=== PATIENT | male | born 1930 | race Caucasian/White ===

== ENCOUNTER 2017-04-29 14:40 | Emergency (ER) | payer OTHER ==
[2017-04-29 14:57] VITALS: TEMP 97.9; BMI 21.9
[2017-04-29 15:24] LABS: RDW 12.6 % (11.9-15.9)
[2017-04-29 15:27] LABS: BASO % 2.2 % (0-2.0); HEMATOCRIT 45.3 % (35.4-49); LYMPH % 10.7 % (8-40); MCHC 33.2 g/dl (32.0-35.9); MEAN CELL VOLUME 90.4 fl (80-96); MEAN PLT VOLUME 8.9 fl (7.5-11.1); MONO % 5.6 % (3.8-10.2); NEUT % 80.5 % (42.8-82.8); PLATELET COUNT 313 K/MM3 (134-434); RBC 5.01 M/mm3 (4.00-5.60); WHITE BLOOD COUNT 11.7 K/mm3 (4.0-10.8)
[2017-04-29 15:37] LABS: ACTIVATED PTT 25.1 SECONDS (24.0-38.9)
--- NOTE | 2017-04-29 15:38 | PDOC ---
History of Present Illness - General Chief Complaint: Chest Pain Stated Complaint: CHEST PAIN FOR 4-5 DAYS Time Seen by Provider: 04/29/17 14:48 - History of Present Illness Initial Comments: 04/29/17 15:47 "The patient is a 87-year-old male, with no significant past medical history, who presents to the ED with chest pain for the past 5 days. He describes the pain as constant, pressure-like in sensation, exacerbated with exertion and going out in cold weather, with no alleviating factors. Pt also reports feeling short of breath when ambulating. He denies F/C. Denies cough. Denies leg swelling. Denies orthopnea. Denies recent immobilization/travel. The patient has never had a stress test. Housing Counselor: Dr. Fuad Prather Hx: Former smoker (quit 50 years ago) " Past History - Past Medical History Allergies/Adverse Reactions: Allergies Allergy/AdvReac Type Severity Reaction Status Date / Time No Known Allergies Allergy Verified 04/30/17 07:57 Home Medications: Ambulatory Orders Cholecalciferol (Vitamin D3) [Vitamin D3] 1,000 unit PO DAILY tablet 07/07/14 [facility] 1 tab PO DAILY 07/07/14 Acetaminophen [Tylenol Extra Strength] 500 mg PO PRN PRN tablet 09/16/15 Vitamin B Complex [B Complex] 1 each PO DAILY 04/29/17 Ropinirole HCl [Requip] 1 mg PO BID 04/30/17 COPD: No Other medical history: RESTLESS LEG SYNDRONE - Suicide/Smoking/Psychosocial Hx Smoking History: Never smoked Hx Alcohol Use: Yes (OCCASIONAL GLASS OF WINE) Drug/Substance Use Hx: No Substance Use Type: None Review of Systems - Review of Systems Comments:: 04/29/17 15:49 "GENERAL/CONSTITUTIONAL: No fever or chills. No weakness. HEAD, EYES, EARS, NOSE AND THROAT: No change in vision. No ear pain or discharge. No sore throat. CARDIOVASCULAR: (+)chest pain, shortness of breath. RESPIRATORY: No cough, wheezing, or hemoptysis. GASTROINTESTINAL: No nausea, vomiting, diarrhea or constipation. GENITOURINARY: No dysuria, frequency, or change in urination. MUSCULOSKELETAL: No joint or muscle swelling or pain. No neck or back pain. SKIN: No rash NEUROLOGIC: No headache, vertigo, loss of consciousness, or change in strength/ sensation. ENDOCRINE: No increased thirst. No abnormal weight change. HEMATOLOGIC/LYMPHATIC: No anemia, easy bleeding, or history of blood clots. ALLERGIC/IMMUNOLOGIC: No hives or skin allergy. " *Physical Exam - Vital Signs Last Vital Signs Temp Pulse Resp BP Pulse Ox 97.9 F 84 16 134/88 99 04/29/17 14:47 04/29/17 18:30 04/29/17 18:30 04/29/17 18:30 04/29/17 18:30 - Physical Exam Comments: 04/29/17 15:49 "GENERAL: Awake, alert, and fully oriented, in no acute distress HEAD: No signs of trauma EYES: PERRLA, EOMI, sclera anicteric, conjunctiva clear ENT: Auricles normal inspection, hearing grossly normal, nares patent, oropharynx clear without exudates. Moist mucosa NECK: Nontender, no stepoffs, Normal ROM, supple, no lymphadenopathy, JVD, or masses LUNGS: Breath sounds equal, clear to auscultation bilaterally. No wheezes, and no crackles HEART: Regular rate and rhythm, normal S1 and S2, no murmurs, rubs or gallops ABDOMEN: Soft, nontender, normoactive bowel sounds. No guarding, no rebound. No masses EXTREMITIES: Normal range of motion, no edema. No clubbing or cyanosis. No cords, erythema, or tenderness NEUROLOGICAL: Cranial nerves II through XII intact. 5/5 strength and sensation in all extremities, Normal speech, normal gait SKIN: Warm, Dry, normal turgor, no rashes or lesions noted. " Heart Score/ECG Review - History History: Slightly suspicious - Electrocardiogram EKG: Normal - Age Age: >/= 65 - Risk Factors Based on the list above the patient has:: No risk factors known - ECG Impressions Comment:: 04/29/17 15:49 NSR, no KIRSTEN/STDs, no TWIs, axis wnl, intervals wnl, rate 88 ED Treatment Course - LABORATORY CBC & Chemistry Diagram: 04/29/17 15:10 04/29/17 15:10 - ADDITIONAL ORDERS Additional order review: 04/29/17 15:10 RBC 5.01 MCV 90.4 MCHC 33.2 RDW 12.6 MPV 8.9 Neutrophils % 80.5 Lymphocytes % 10.7 D Monocytes % 5.6 Eosinophils % 1.0 Basophils % 2.2 H D - RADIOLOGY Radiology Studies Ordered: Category Date Time Status CHEST PA & LAT [RAD] Stat Radiology 04/29/17 15:04 Completed - Medications Given in the ED: ED Medications Discontinued Medications Generic Name Dose Route Start Last Admin Trade Name Jabariq PRN Reason Stop Dose Admin Aspirin 325 mg 04/29/17 18:52 04/29/17 19:05 Asa - PO 04/29/17 18:53 325 mg ONCE ONE Administration Azithromycin 500 mg/ Dextrose 250 mls @ 250 mls/hr 04/29/17 15:51 04/29/17 16 :30 IVPB 04/29/17 16:50 250 mls/hr ONCE ONE Administration Ceftriaxone Sodium 1 gm/ 50 mls @ 100 mls/hr 04/29/17 15:50 04/29/17 16:00 Dextrose IVPB 04/29/17 16:19 100 mls/hr ONCE ONE Administration Nitroglycerin 1 inch 04/29/17 18:52 04/29/17 19:05 Nitro-Bid 2% Paste - TD 04/29/17 18:53 1 inch ONCE ONE Administration Medical Decision Making - Critical Care Time Total Critical Care Time (minutes): 60 Critical Care Statement: The care of this patient involved high complexity decision making to prevent further life threatening deterioration of the patient 's condition and/or to evaluate & treat vital organ system(s) failure or risk of failure. - Medical Decision Making 04/29/17 15:49 87 M with CP and SOB. EKG is nonischemic (no ST elevations/depressions, no T wave inversions). However, pt does report exertional component of pain, concerning for ACS. Pt with no clinical s/s of DVT or PE. Possible PNA. - Labs, trop, BNP - CXR 04/29/17 18:46 CBC,CMP WBC 11.7 K/mm3 (4.0-10.8) H D 04/29/17 15:10 RBC 5.01 M/mm3 (4.00-5.60) 04/29/17 15:10 Hgb 15.0 GM/dl (11.7-16.9) 04/29/17 15:10 Hct 45.3 % (35.4-49) 04/29/17 15:10 MCV 90.4 fl (80-96) 04/29/17 15:10 MCH 30.0 pg (25.7-33.7) 04/29/17 15:10 MCHC 33.2 g/dl (32.0-35.9) 04/29/17 15:10 RDW 12.6 % (11.9-15.9) 04/29/17 15:10 Plt Count 313 K/MM3 (134-434) 04/29/17 15:10 MPV 8.9 fl (7.5-11.1) 04/29/17 15:10 Neutrophils % 80.5 % (42.8-82.8) 04/29/17 15:10 Lymphocytes % 10.7 % (8-40) D 04/29/17 15:10 Monocytes % 5.6 % (3.8-10.2) 04/29/17 15:10 Eosinophils % 1.0 % (0-4.5) 04/29/17 15:10 Basophils % 2.2 % (0-2.0) H D 04/29/17 15:10 Sodium 133 mmol/L (136-145) L 04/29/17 15:10 Potassium 4.0 mmol/L (3.5-5.1) 04/29/17 15:10 Chloride 101 mmol/L (98-107) 04/29/17 15:10 Carbon Dioxide 25 mmol/L (22-28) 04/29/17 15:10 Anion Gap 7 (8-16) L 04/29/17 15:10 BUN 20 mg/dl (7-18) H 04/29/17 15:10 Creatinine 0.8 mg/dl (0.6-1.3) 04/29/17 15:10 Creat Clearance w eGFR > 60 (>60) 04/29/17 15:10 Random Glucose 124 mg/dl (74-106) H D 04/29/17 15:10 Calcium 9.6 mg/dl (8.4-10.2) 04/29/17 15:10 Total Bilirubin 0.5 mg/dl (0.2-1.0) D 04/29/17 15:10 AST 64 U/L (10-42) H D 04/29/17 15:10 ALT 25 U/L (10-40) D 04/29/17 15:10 Alkaline Phosphatase 109 U/L (32-92) H D 04/29/17 15:10 Creatine Kinase 387 IU/L (39-308) H 04/29/17 15:10 Creatine Kinase Index 10.6 % (0.0-5.0) H* 04/29/17 15:10 CK-MB (CK-2) 41.285 ng/mL (0.5-3.6) H 04/29/17 15:10 Troponin I 2.96 ng/ml (0.00-0.05) H* 04/29/17 15:10 B-Natriuretic Peptide 2734.32 pg/ml (5-450) H 04/29/17 15:10 Total Protein 6.9 g/dl (6.4-8.3) 04/29/17 15:10 Albumin 3.7 g/dl (3.5-5.0) 04/29/17 15:10 Trop 2.96 I spoke with the patient and reviewed the lab results with him, informing him that he is likely suffering from an OH. Pt understands that this is a life- threatening condition, but he states that he absolutely will not stay in the hospital overnight. When asked why, he replies that he has been here for 4 hours already and wishes to go home, as he feels better and needs to " straighten some things out". Pt states that he will come back tomorrow after he is done. The patient is clinically sober, free from distracting injury, appears to have intact insight and judgment and reason and in my opinion has the capacity to make decisions. The patient presented with chest pain and was found to have an elevated troponin. I have explained that I am concerned that this may represent a heart attack; they have verbalized an understanding of my concerns. I have discussed the need for cardiology consultation, admission to the hospital, and possible transfer for cardiac catheterization. I have told the patient that if he refuses treatment, he may suffer irreversible heart damage. I have told the patient that if they leave, they could get much worse, could become critically ill, and could possibly become disabled or . I have offered to give the patient more pain medication. I have asked them to stay in the hospital for continued monitoring, repeat blood tests, cardiology consultation, and possible transfer for interventional cardiology. I have discussed these concerns with the patient's who is at the bedside and she is unable to convince them to stay for further evaluation. He is unwilling to stay overnight for monitoring, additional testing, or interventions. He is refusing any further care and is leaving against medical advice. I am unable to convince the patient to stay, I have asked them to return as soon as possible to complete their evaluation. I have offered to speak with Dr. Merida regarding his condition, but he states it will not change his decision. I have answered all their questions. *DC/Admit/Observation/Transfer Diagnosis at time of Disposition: NSTEMI (non-ST elevated myocardial infarction) - Discharge Dispostion Disposition: AGAINST MEDICAL ADVICE Condition at time of disposition: Critical - Referrals Referrals: Alberto Merida MD [Primary Care Provider] - - Patient Instructions Additional Instructions: You are suffering from a heart attack, which is a life-threatening condition. If you leave the hospital tonight, you are putting yourself in imminent danger. You will likely suffer irreversible heart damage without treatment, which can lead to severe illness or disability. You may also . You must return to the emergency room as soon as possible for treatment of your heart attack. - Post Discharge Activity - Attestations Physician Attestion: 04/29/17 19:09 I, Dr. Deni Roldan MD, attest that this document has been prepared under my direction and personally reviewed by me in its entirety. I further attest, that it accurately reflects all work, treatment, procedures and medical decision -making performed by me.
[2017-04-29 15:39] LABS: ALBUMIN 3.7 g/dl (3.5-5.0); ALK PHOS 109 U/L (32-92); ANION GAP 7 (8-16); BILIRUBIN,TOTAL 0.5 mg/dl (0.2-1.0); BLOOD UREA NITROGEN 20 mg/dl (7-18); CALCIUM 9.6 mg/dl (8.4-10.2); CHLORIDE 101 mmol/L (98-107); CO2 25 mmol/L (22-28); CREATININE 0.8 mg/dl (0.6-1.3); GLUCOSE,RANDOM 124 mg/dl (74-106); SGOT/AST 64 U/L (10-42); SGPT/ALT 25 U/L (10-40); SODIUM 133 mmol/L (136-145); TOT PROT 6.9 g/dl (6.4-8.3)
[2017-04-29 15:42] LABS: INR 1.05 (0.82-1.09); PROTHROMBIN TIME (PATIENT) 11.7 SEC (10.2-13.0)
[2017-04-29] MEDS ORDERED: CEFTRIAXONE 1 GM in DEXTROSE 5%-WATER - 50 ML IVPB ONE (15:50)
[2017-04-29] MEDS ORDERED: AZITHROMYCIN IVPB 500 MG in DEXTROSE 5%-WATER - 250 ML IVPB ONE (15:51)
[2017-04-29] MEDS ORDERED: AZITHROMYCIN 500 MG VIAL IVPB ONE (15:59)
[2017-04-29] MEDS ORDERED: cefTRIAXone SODIUM 1 GM VIAL ONE (15:59)
[2017-04-29 18:39] VITALS: BP 134/88; PULSE 84
[2017-04-29] MEDS ORDERED: ASPIRIN 325 MG TABLET PO ONE (18:52)
[2017-04-29] MEDS ORDERED: NITROGLYCERIN 2% OINTMENT - 1GM PACKET TD ONE ×2 (18:52→19:02)
[2017-04-29] MEDS ORDERED: ASPIRIN 325 MG TABLET ONE (19:01)
--- NOTE | 2017-05-01 15:57 | EKG ---
Test Reason : Blood Pressure : / mmHG Vent. Rate : 088 BPM Atrial Rate : 088 BPM P-R Int : 140 ms QRS Dur : 092 ms QT Int : 342 ms P-R-T Axes : 061 052 079 degrees QTc Int : 413 ms NORMAL SINUS RHYTHM CANNOT RULE OUT ANTEROSEPTAL INFARCT , AGE UNDETERMINED NO PREVIOUS ECGS AVAILABLE Confirmed by MD PEREZ MARJORY ([id number]) on 05/01/2017 3:56:41 PM Referred By: YARELI Confirmed By:WESTON PEREZ MD
== END 2017-04-29 19:12 | disposition left against medical advice (07) ==
LOC: FER 14:40
DX: I21.3 ST elevation (STEMI) myocardial infarction of unspecified site (principal)
CPT/HCPCS: 36415; 71046-TC; 80053; 82550; 82553; 83880; 84484; 85025; 85610; 85730; 93005; 99284-25

== ENCOUNTER → 2017-04-30 | Emergency (ER) | payer OTHER ==
[~2017-04-30] MED LIST: ASPIRIN 81 MG CHEWABLE TABLETS ONE; ASPIRIN 81 MG CHEWABLE TABLETS PO ONE; CLOPIDOGREL BISULFATE 300 MG TABLET ONE; CLOPIDOGREL BISULFATE 300 MG TABLET PO ONE; HEPARIN INFUSION - 25,000 UNITS/500 ML INFUS.BAG IVPB ONE; HEPARIN INFUSION - 25,000 UNITS/500 ML INFUS.BAG IVPB SCH; HEPARIN NA (PORCINE) 5,000 UNITS/ML 1ML VIAL IVPUSH PRN; HEPARIN NA (PORCINE) 5,000 UNITS/ML 1ML VIAL ONE
--- NOTE | 2017-04-30 07:50 | PDOC ---
History of Present Illness - General Chief Complaint: Pain Stated Complaint: CHEST PAIN Time Seen by Provider: 04/30/17 07:41 History Source: Patient Exam Limitations: No Limitations - History of Present Illness Initial Comments: 04/30/17 07:46 87 y/o male seen yesterday in ER fro chest pain, signed out AMA. Patient had a Troponin of 2.9 yesterday. Denies back pain or arm pain. No fever or chills or SOB. This pain has been on/off since Monday. Pain is about a level 3 now. Took a baby Aspirin this morning. No N/V/d/C. Severity: mild Past History - Past Medical History Allergies/Adverse Reactions: Allergies Allergy/AdvReac Type Severity Reaction Status Date / Time No Known Allergies Allergy Verified 04/30/17 07:57 Home Medications: Ambulatory Orders Cholecalciferol (Vitamin D3) [Vitamin D3] 1,000 unit PO DAILY tablet 07/07/14 [facility] 1 tab PO DAILY 07/07/14 Acetaminophen [Tylenol Extra Strength] 500 mg PO PRN PRN tablet 09/16/15 Vitamin B Complex [B Complex] 1 each PO DAILY 04/29/17 Ropinirole HCl [Requip] 1 mg PO BID 04/30/17 COPD: No - Suicide/Smoking/Psychosocial Hx Smoking History: Never smoked Hx Alcohol Use: Yes (OCCASIONAL GLASS OF WINE) Drug/Substance Use Hx: No Substance Use Type: None Review of Systems - Review of Systems Able to Perform ROS?: Yes Is the patient limited Omani proficient: No Constitutional: No: Chills, Fever HEENTM: No: Throat Pain Respiratory: No: Cough, Shortness of Breath Cardiac (ROS): Yes: Chest Pain. No: Edema, Palpitations, Syncope ABD/GI: No: Nausea, Vomiting Musculoskeletal: No: Back Pain Neurological: No: Dizziness All Other Systems: Reviewed and Negative *Physical Exam - Physical Exam General Appearance: Yes: Nourished, Appropriately Dressed. No: Apparent Distress HEENT: positive: EOMI, BRITTANY, Normal ENT Inspection, Normal Voice, Pharynx Normal Neck: positive: Trachea midline, Normal Thyroid, Supple. negative: Tender, Rigid, Carotid bruit Respiratory/Chest: positive: Lungs Clear, Normal Breath Sounds. negative: Chest Tender, Respiratory Distress Cardiovascular: positive: Regular Rhythm, Regular Rate, S1, S2. negative: Edema , JVD, Murmur Vascular Pulses: Femoral (R): 4+, Femoral (L): 4+, Carotid (R): 4+, Carotid (L) : 4+, Dorsalis-Pedis (R): 4+, Doralis-Pedis (L): 4+ Gastrointestinal/Abdominal: positive: Normal Bowel Sounds, Flat, Soft. negative : Tender, Organomegaly, Pulsatile Mass Lymphatic: negative: Adenopathy, Tenderness, Other Musculoskeletal: positive: Normal Inspection. negative: CVA Tenderness Extremity: positive: Normal Capillary Refill, Normal Inspection, Normal Range of Motion Integumentary: positive: Normal Color, Dry, Warm Neurologic: positive: a/c technician II-XII NML intact, Fully Oriented, Alert, Normal Mood/ Affect, Normal Response, Motor Strength 5/5 Heart Score/ECG Review - History History: Highly suspicious - Electrocardiogram EKG: Significant ST-depression - Age Age: >/= 65 - Risk Factors Based on the list above the patient has:: 1-2 risk factors - Troponin Troponin: >/=3x normal limit - Score Heart Score - Total: 9 - ECG Intrepretation Rhythm: Regular Rhythm Comment:: 04/30/17 08:06 HR 75, t wave inversion in V1-V4 compared to EKG of 04/29/2017, positive STEMI ED Treatment Course - LABORATORY CBC & Chemistry Diagram: 04/30/17 08:27 04/30/17 08:27 - ADDITIONAL ORDERS Additional order review: 04/30/17 07:50 87 y/o male with elevated Troponin returns with chest pain. Will obtain cardiac work up again. - RADIOLOGY Radiology Studies Ordered: 04/30/17 11:20 CXR NAD no change from prior Spoke with Marie Manzo who agrees with transfer. Spoke with [facility] transfer center Dr. 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 Truong. Patient wishes to go to [facility], not [facility] Pt signed out AMA yesterday, evolving STEMI, T wave inversions Pt understands risks and benefits, pain for last 5 days *DC/Admit/Observation/Transfer Diagnosis at time of Disposition: STEMI (ST elevation myocardial infarction) Qualifiers: Involved coronary artery: unspecified coronary artery Qualified Code(s): I21.3 - ST elevation (STEMI) myocardial infarction of unspecified site - Discharge Dispostion Disposition: TRANSFER ACUTE CARE/OTHER HOSP Condition at time of disposition: Guarded Admit: Yes - Referrals - Patient Instructions - Post Discharge Activity - Transfer to Acute Care Facility Receiving Facility: [facility]. Accepting Physician:: Dr. Truong Transfer comment: 04/30/17 11:23 Pt with STEMI, evolving., chest pain for 5 days Signed out AMA yesterday, with elevated Troponin
[2017-04-30 08:37] VITALS: TEMP 98.6; BMI 21.9
[2017-04-30 08:57] LABS: HEMATOCRIT 41.4 % (35.4-49); HEMOGLOBIN 13.5 GM/dl (11.7-16.9); MCH 29.8 pg (25.7-33.7); MCHC 32.6 g/dl (32.0-35.9); MEAN CELL VOLUME 91.3 fl (80-96); MEAN PLT VOLUME 8.9 fl (7.5-11.1); PLATELET COUNT 325 K/MM3 (134-434); RBC 4.54 M/mm3 (4.00-5.60); RDW 12.8 % (11.9-15.9); WHITE BLOOD COUNT 11.2 K/mm3 (4.0-10.8)
[2017-04-30 09:28] LABS: BASO % 0.5 % (0-2.0); EOS % 0.2 % (0-4.5); LYMPH % 8.9 % (8-40); MONO % 6.4 % (3.8-10.2)
[2017-04-30 10:08] LABS: ACTIVATED PTT 24.8 SECONDS (24.0-38.9)
[2017-04-30 10:12] LABS: INR 1.04 (0.82-1.09); PROTHROMBIN TIME (PATIENT) 11.6 SEC (10.2-13.0)
[2017-04-30 10:49] LABS: ALBUMIN 3.1 g/dl (3.4-5.0); ALK PHOS 119 U/L (45-117); ANION GAP 10 (8-16); BILIRUBIN,TOTAL 0.4 mg/dL (0.2-1.0); BLOOD UREA NITROGEN 18 mg/dL (7-18); CALCIUM 9.5 mg/dL (8.5-10.1); CHLORIDE 103 mmol/L (98-107); CO2 25 mmol/L (21-32); CREATININE 0.8 mg/dL (0.7-1.3); GLUCOSE,RANDOM 103 mg/dL (74-106); LIPASE 105 U/L (73-393); POTASSIUM 4.2 mmol/L (3.5-5.1); SGOT/AST 228 U/L (15-37); SGPT/ALT 50 U/L (12-78); SODIUM 138 mmol/L (136-145); TOT PROT 7.1 g/dl (6.4-8.2)
[2017-04-30 10:54] LABS: N-TERMINAL BNP 9013.18 pg/ml (5-450)
[2017-04-30 11:40] VITALS: BP 115/77
[2017-04-30 11:46] VITALS: PULSE 78
--- NOTE | 2017-05-01 15:56 | EKG ---
Test Reason : Blood Pressure : / mmHG Vent. Rate : 071 BPM Atrial Rate : 071 BPM P-R Int : 148 ms QRS Dur : 100 ms QT Int : 434 ms P-R-T Axes : 060 041 088 degrees QTc Int : 471 ms NORMAL SINUS RHYTHM ANTEROSEPTAL INFARCT (CITED ON OR BEFORE 29-APR-2017) T WAVE ABNORMALITY, CONSIDER LATERAL ISCHEMIA WHEN COMPARED WITH ECG OF 29-APR-2017 14:46, SERIAL CHANGES OF ANTEROSEPTAL INFARCT PRESENT Confirmed by MD ANA, WESTON ([id number]) on 05/01/2017 3:56:22 PM Referred By: NISA THOMAS Confirmed By:WESTON PEREZ MD
== END | disposition short-term general hospital (02) ==
LOC: FER 07:39 → SUPCPDRO 07:39
PROC: 3E033GC Introduction of Other Therapeutic Substance into Peripheral Vein, Percutaneous Approach (ICD-10-PCS; principal; 2017-04-30)
DX: I21.3 ST elevation (STEMI) myocardial infarction of unspecified site (principal)
CPT/HCPCS: 36415; 71045-TC; 80053; 83690; 83880; 84484; 85025; 85610; 85730; 93005; 99285-25; J1644

== ENCOUNTER 2018-09-15 12:52 | Emergency (ER) | payer OTHER ==
--- NOTE | 2018-09-15 13:00 | PDOC ---
History of Present Illness - General Chief Complaint: Pain Stated Complaint: SWOLLEN KNEE LEFT Time Seen by Provider: 09/15/18 12:53 History Source: Patient - History of Present Illness Initial Comments: 09/15/18 14:20 The patient is an 88 year old male with a PMH of MA (s/p stent in 2018) who presents to our ED c/o L knee pain. Patient reports he was standing on uneven ground for two hours on while trimming his hedges. Has taken Motrin and Aleve with little relief of his pain. Pain became particularly severe overnight prompting his visit to the ED. Has a previously scheduled appointment with Dr. Cardenas on Monday (09/17). 10 point ROS is negative including no chest pain, no abdominal pain, no shortness of breath, no fevers/chills, no nausea/vomiting. NKDA Surgical: Stent (2018) Past History - Past Medical History Allergies/Adverse Reactions: Allergies Allergy/AdvReac Type Severity Reaction Status Date / Time No Known Allergies Allergy Verified 09/15/18 12:52 Home Medications: Ambulatory Orders Cholecalciferol (Vitamin D3) [Vitamin D3] 1,000 unit PO DAILY tablet 07/07/14 Acetaminophen [Tylenol Extra Strength] 500 mg PO PRN PRN tablet 09/16/15 Vitamin B Complex [B Complex] 1 each PO DAILY 04/29/17 Ropinirole HCl [Requip] 1 mg PO BID 04/30/17 Aspirin [ASA -] 81 mg PO DAILY 09/15/18 Atorvastatin Ca [Lipitor] 80 mg PO HS 09/15/18 Clopidogrel Bisulfate [Plavix] 75 mg PO DAILY 09/15/18 Metoprolol Succinate [Toprol Xl] 25 mg PO DAILY 09/15/18 COPD: No - Suicide/Smoking/Psychosocial Hx Smoking History: Never smoked Have you smoked in the past 12 months: No Hx Alcohol Use: Yes (OCCASIONAL GLASS OF WINE) Drug/Substance Use Hx: No Substance Use Type: None Review of Systems - Review of Systems Constitutional: No: See HPI, Fever HEENTM: No: Blurred Vision, Recent change in vision Respiratory: No: Cough, Shortness of Breath Cardiac (ROS): No: Chest Pain, Lightheadedness, Palpitations, Syncope ABD/GI: No: Constipated, Diarrhea, Nausea, Vomiting Musculoskeletal: Yes: Joint Pain *Physical Exam - Physical Exam Comments: 09/15/18 14:29 Awake, alert, well appearing MSK: L knee erythema, minor patellar effusion, no TTP, extensor mechanism intact CV: S1, S2, RRR Respiratory: CLTA B/L, no wheeze/crackle Abdomen: soft, no TTP, (+) bowel sounds Neuro: A&O x3, CN II-XII intact, mildly antalgic gait Medical Decision Making - Medical Decision Making 09/15/18 14:20 88 year old male with L knee pain, likely 2/2 to over exertion. No LE swelling calf pain. VS unremarkable. Mild erythema, effusion, no tenderness, 2+ DP pulse Will obtain XR given patient's age and history. 09/15/18 14:43 X-ray shows small suprapatellar effusion, no fracture/dislocation. Will discharge home with return precautions, Tylenol for pain control (patient on Plavix, counseled to avoid NSAIDS for bleeding risk) and instruction to follow-up with orthopedic surgery as previously scheduled. *DC/Admit/Observation/Transfer Diagnosis at time of Disposition: Knee pain, left - Discharge Dispostion Disposition: HOME Condition at time of disposition: Good Decision to Admit order: No - Referrals Referrals: Huy Cardenas MD [Staff Physician] - - Patient Instructions Printed Discharge Instructions: DI for Knee Effusion, DI for Knee Pain Additional Instructions: You can take Tylenol for your pain (up to 4000 mg daily) every 4-6 hours. Do not take Motrin or Ibuprofen as these will interact with your Plavix medication. Please keep your previously scheduled appointment with Dr. Cardenas on Monday. Return to the Emergency Department for any new/worsening/concerning symptoms. - Post Discharge Activity
[2018-09-15 13:06] VITALS: BP 116/62; PULSE 68; TEMP 97.7; BMI 21.1
[2018-09-15] MEDS ORDERED: ACETAMINOPHEN 500 MG TABLET (FP) PO ONE (13:18)
[2018-09-15] MEDS ORDERED: ACETAMINOPHEN 500 MG TABLET (FP) ONE (13:18)
--- NOTE | 2018-09-15 14:54 | PDOC ---
Attending Attestation - Resident Resident Name: Lesvia Renee - ED Attending Attestation I have performed the following: I have examined & evaluated the patient, The case was reviewed & discussed with the resident, I agree w/resident's findings & plan, Exceptions are as noted - HPI HPI: 09/15/18 16:33 88yo M hx CAD s/p stent April 2017 (on ASA and plavix) presents to the ED atraumatic L knee pain for 3 days. 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 He states the quality of this pain is the same but it feels stronger than usual prompting ED visit. He states the pain began after he was trimming hedges for 3 hours three days ago. He tried aleve and tylenol for the pain with minimal relief. He denies fevers, chills. He is able to bear weight on the knee but with pain. Denies recent headache, weakness/numbness, cp, sob, abd pain, n/v/d, urinary sxs , dizziness. - Physicial Exam PE: 09/15/18 16:36 GENERAL: Awake, alert, and fully oriented, in no acute distress. Well appearing. HEAD: No signs of trauma EYES: PERRLA, EOMI, sclera anicteric, conjunctiva clear LUNGS: Breath sounds equal, clear to auscultation bilaterally. No wheezes, and no crackles HEART: Regular rate and rhythm, normal S1 and S2, no murmurs, rubs or gallops ABDOMEN: Soft, nontender, normoactive bowel sounds. No guarding, no rebound. No masses EXTREMITIES: L knee with no bony ttp, +edema noted to suprapatellar area, slightly ballotable. No erythema. Negative lachmans and anterior drawer. No MCL or LCL ttp with valgus or varus stress. Full strength distally with dorsi and plantar flexion. 2+ peripheral pulses. Remaining extremities: Normal range of motion, no edema. No clubbing or cyanosis. No cords, erythema, or tenderness NEUROLOGICAL: Normal speech, cranial nerves intact, 5/5 strength in all 4 extremities, normal sensation to light touch in all 4 extremities, normal tone, antalgic but steady gait. SKIN: Warm, Dry, normal turgor, no rashes or lesions noted. - Medical Decision Making 09/15/18 14:39 88yo M presents to the ED with L knee pain after trimming hedges for 3 hours. Exam consistent with effusion. LE NVI No fevers, chills, and pt able to fully range knee and bear weight, thus unlikely septic joint XR confirms small effusion Pain well controlled with tylenol Advised pt not to take motrin, aleve, ibuprofen or any other NSAIDs while taking plavix, pt expresses understanding. Pt already scheduled f/u with Dr. Cardenas on Sunday 09/17 Clinically stable for DC home I discussed the physical exam findings, ancillary test results and final diagnoses with the patient. I answered all of the patient's questions. The patient was satisfied with the care received and felt comfortable with the discharge plan and treatment plan. The patient will call their primary care physician within 24 hours to arrange follow-up and will return to the Emergency Department with any new, persistent or worsening symptoms.
== END 2018-09-15 14:27 | disposition home or self-care (01) ==
LOC: FER 12:52
DX: M25.562 Pain in left knee (principal)
CPT/HCPCS: 73562-TC-LT-FY; 99282-25